=== PATIENT | female | born 1990 | race Caucasian/White ===

== ENCOUNTER 2019-03-24 07:23 | Day surgery (SDC) | payer BC ==
[~2019-03-24 07:23] MED LIST: Lactated Ringers 1,000 ML IV SCH; Lidocaine 1%/Sod Bicarbonate in NS 8.4% 1 ML Syringe IDERM PRN; Sodium Chloride 0.9% 10 ML Syringe FLUSH PRN
--- NOTE | 2019-03-24 07:55 | PCM.PREANE ---
Preanesthetic Assessment - Anesthesia/Transfusion/Family Hx Anesthesia History: Prior Anesthesia Without Reaction Family History of Anesthesia Reaction: No Transfusion History: No Prior Transfusion(s) Intubation History: Unknown - Review of Systems General: No Symptoms Pulmonary: No Symptoms Cardiovascular: No Symptoms Gastrointestinal: No Symptoms Neurological: No Symptoms Other: Reports: None - Physical Assessment NPO Status Date: 03/23/19 NPO Status Time: 09:30 Blood Pressure: 118/80 Height: 1.68 m Weight: 88.451 kg Mental Status: Alert & Oriented x3 Airway Class: Mallampati = 1 Dentition: Reports: Normal Dentition Thyro-Mental Finger Breadths: 3 Mouth Opening Finger Breadths: 3 ROM/Head Extension: Full Lungs: Clear to Auscultation, Normal Respiratory Effort Cardiovascular: Regular Rate, Regular Rhythm, No Murmurs - Lab Values: Laboratory Last Values WBC 8.33 K/mm3 (3.98-10.04) 03/21/19 16:15 RBC 4.82 M/mm3 (3.98-5.22) 03/21/19 16:15 Hgb 13.8 gm/L (11.2-15.7) 03/21/19 16:15 Hct 42.2 % (34.1-44.9) 03/21/19 16:15 MCV 87.6 fl (79.4-94.8) 03/21/19 16:15 MCH 28.6 pg (25.6-32.2) 03/21/19 16:15 MCHC 32.7 g/dl (32.2-35.5) 03/21/19 16:15 RDW Std Deviation 42.7 fL (36.4-46.3) 03/21/19 16:15 Plt Count 300 K/mm3 (182-369) 03/21/19 16:15 MPV 10.3 fl (9.4-12.3) 03/21/19 16:15 Neut % (Auto) 60.3 % (34.0-71.1) 03/21/19 16:15 Lymph % (Auto) 31.8 % (19.3-51.7) 03/21/19 16:15 [place] % (Auto) 6.2 % (4.7-12.5) 03/21/19 16:15 Eos % (Auto) 1.2 (0.7-5.8) 03/21/19 16:15 Baso % (Auto) 0.4 % (0.1-1.2) 03/21/19 16:15 Neut # (Auto) 5.02 K/mm3 (1.56-6.13) 03/21/19 16:15 Lymph # (Auto) 2.65 K/mm3 (1.18-3.74) 03/21/19 16:15 [place] # (Auto) 0.52 K/mm3 (0.24-0.36) H 03/21/19 16:15 Eos # (Auto) 0.10 K/mm3 (0.04-0.36) 03/21/19 16:15 Baso # (Auto) 0.03 K/mm3 (0.01-0.08) 03/21/19 16:15 Urine HCG, Qual Negative (NEGATIVE) 03/24/19 07:31 - Allergies Allergies/Adverse Reactions: Allergies Allergy/AdvReac Type Severity Reaction Status Date / Time No Known Allergies Allergy Verified 03/23/19 13:45 - Acknowledgements Anesthesia Type Planned: MAC Pt an Appropriate Candidate for the Planned Anesthesia: Yes Alternatives and Risks of Anesthesia Discussed w Pt/Guardian: Yes Pt/Guardian Understands and Agrees with Anesthesia Plan: Yes PreAnesthesia Questionnaire HEENT History: Reports: Impaired Vision, Other (See Below) Other HEENT History: WEARS GLASSES Cardiovascular History: Reports: None Respiratory History: Reports: None Gastrointestinal History: Reports: None Genitourinary History: Reports: Other (See Below) Other Genitourinary History: 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 Neurological History: Reports: None Psychiatric History: Reports: None Endocrine/Metabolic History: Reports: None Hematologic History: Reports: None Immunologic History: Reports: None Oncologic (Cancer) History: Reports: None Dermatologic History: Reports: None - Past Surgical History Head Surgeries/Procedures: Reports: None HEENT Surgical History: Reports: Oral Surgery Cardiovascular Surgical History: Reports: None Respiratory Surgical History: Reports: None GI Surgical History: Reports: Appendectomy Female Surgical History: Reports: LEEP Endocrine Surgical History: Reports: None Neurological Surgical History: Reports: Other (See Below) Other Neurological Surgeries/Procedures: BACK SURGERY Musculoskeletal Surgical History: Reports: Arthroscopic Knee Oncologic Surgical History: Reports: None Dermatological Surgical History: Reports: None - SUBSTANCE USE Smoking Status *Q: Never Smoker Recreational Drug Use History: No - HOME MEDS Home Medications: Home Meds . [No Known Home Meds] 03/23/19 [History] - CURRENT (IN HOUSE) MEDS Current Meds: Current Medications Lactated Ringer's (Ringers, Lactated) 1,000 mls @ 125 mls/hr IV ASDIRECTED CELY PRN Reason: Pain Stop: 03/24/19 23:00 Lidocaine/Sodium Bicarbonate (Buffered Lidocaine 1% In Ns 8.4%) 0.25 ml IDERM ONETIME PRN PRN Reason: Prior to IV Start Stop: 03/24/19 18:00 Sodium Chloride (Saline Flush) 10 ml FLUSH ASDIRECTED PRN PRN Reason: Keep Vein Open Stop: 03/24/19 18:00
[2019-03-24] MEDS ORDERED: Ondansetron 4 MG/2 ML SDV ONE (08:04)
[2019-03-24] MEDS ORDERED: Propofol 200 MG/20 ML SDV ONE (08:04)
[2019-03-24] MEDS ORDERED: fentaNYL 250 MCG/5 ML SDV ONE (08:05)
[2019-03-24] MEDS ORDERED: Midazolam 1 MG/ML 2 ML SDV ONE (08:05)
[2019-03-24] MEDS ORDERED: Lidocaine 1% 4 ML ONE (08:05)
[2019-03-24] MEDS ORDERED: Ibuprofen 600 MG Tab PO PRN (09:18)
--- NOTE | 2019-03-24 09:23 | PCM.OPNOTE ---
- General Post-Op/Procedure Note Date of Surgery/Procedure: 03/24/19 Operative Procedure(s): removal of IUD under anesthesia. Findings: Mirena IUD noted to be in utero. The IUD strings extending approximately 1-1/2 cm beyond the external os of the cervix. Pre Op Diagnosis: Mirena IUD in utero with intolerance of procedure in clinic to remove IUD. Post-Op Diagnosis: Same Anesthesia Technique: Moderate Sedation Primary Surgeon: James Lopez Anesthesia Provider: Iban Carrillo Track Fitter: Otis Stuart Pathology: Mirena IUD was placed in a biohazard bag to be shown to the patient. It was not sent to pathology for evaluation. Output, Urine Amount: 0 EBL in mLs: 0 Complications: None Condition: Good Free Text/Narrative:: surgery duration: One minutes Procedure: Patient was taken surgery given sedation per anesthesia. Placed in a dorsal lithotomy position. A medium Graves bivalve speculum was placed. the strings twice a day were visualized. They're grasped with ring forceps and removed. Patient tolerated procedure well. No Pap patient was returned to supine position and discharge from the operating room in good condition.
== END 2019-03-24 09:50 | disposition home or self-care (01) ==
LOC: JD.SDS 07:23
PROVIDERS: ATTEND Obstetrics & Gynecology
DX: Z30.432 Encounter for removal of intrauterine contraceptive device (principal)
CPT/HCPCS: 36415; 58301; 81025; 85025; J2001; J2250; J2405; J2704; J3010; J7120; 00940

== ENCOUNTER 2020-02-06 09:41 | Inpatient (IN) | payer BC ==
[~2020-02-06 09:41] MED LIST changes: +Bupivacaine 0.25% 10 ML SDV ONE; -Lactated Ringers 1,000 ML IV SCH; -Lidocaine 1%/Sod Bicarbonate in NS 8.4% 1 ML Syringe IDERM PRN; -Sodium Chloride 0.9% 10 ML Syringe FLUSH PRN
[2020-02-06] MEDS ORDERED: Nalbuphine 10 MG/ML Syringe IVPUSH PRN (10:07)
[2020-02-06] MEDS ORDERED: Ondansetron 4 MG/2 ML SDV IVPUSH PRN (10:07)
[2020-02-06] MEDS ORDERED: Sodium Chloride 0.9% 10 ML Syringe FLUSH PRN (10:07)
[2020-02-06] MEDS ORDERED: Oxytocin/Lactated Ringers 10 UNIT/1,000 ML BAG IV SCH ×2 (10:15)
--- NOTE | 2020-02-06 10:34 | PCM.LDHP ---
L&D History of Present Illness - General Date of Service: 02/06/20 Admit Problem/Dx: Patient Status Order with Admit Dx/Problem 02/06/20 09:53 Patient Status [ADT] Routine 02/06/20 10:10 Patient Status [ADT] Routine Admission Diagnosis/Problem Admission Diagnosis/Problem 02/06/20 10:25 Merry is a 29-year-old 1 para 0 white female presently at 37 and 57 weeks gestational age with an GONZALO of 02/22/2020 admitted for spontaneous rupture membranes with resultant clear amniotic fluid and early labor. Source of Information: Patient History Limitations: Reports: No Limitations - History of Present Illness Introduction:: Merry is a 29-year-old 1 para 0 white female presently at 37 and 57 weeks gestational age with an GONZALO of 02/22/2020 admitted for spontaneous rupture membranes with resultant clear amniotic fluid and early labor.She reports that approximately 0500 hrs. today she had a gush of fluid and has had continuous clear fluid leakage since that time. She is not having any significant contractions. She reports good activity. Evaluation in labor and delivery shows what appears to be gross rupture of membranes. The heart tones are reassuring. TRAINING SPECIALIST history: Merry is a 1 para 0. She had normal menarche at age 9 with cycles every month and duration of cycles 3-4 days. She is not using any control time of conception. Her certain last menstrual period started on . She had 2 ultrasounds during the course the which supported her GONZALO on 08/10/2019 at 12 weeks and 4 days and the second one on 10/13/2019 at 22-0/7 weeks gestational age. She denies any abnormal Pap smears or STDs. course. First visit was on 10/11/2018 at 12 weeks gestational age. Merry was seen on a regular basis during the course of her . Weight gain was from 180.8 pounds to 204.6 pounds for an 24 pound increase. Her vital signs remained stable throughout her course. Growth was appropriate. Patient desires an epidural in labor and delivery. She is group B strep negative. She had a history of cervical dysplasia and had a LEEP done on 12/13/2019. She declined genetic testing during the course was. She plans to breast-feed. Patient is rubella immune. Laboratory testing and shows blood to be O+ with a negative antibody screen. Hemoglobin is 13.0 g/dL platelets are 289,000. She is rubella immune. RPR is nonreactive. Urine culture is first visit was negative. Hep B surface antigen and HIV assays were both negative. Chlamydia and gonorrhea testing were both negative. Second trimester testing showed hemoglobin 12.0 g/ dL. Her 1 hour GTT was 130 mg/dL. Platelets were 303,000. RPR done on 11/21/2019 was nonreactive. Group B strep screen was negative. Allergies: None Medications: vitamins 1 daily Past medical history: 1. Cervical dysplasia treated with LEEP 2008. Past surgical history: 1. LEEP 2009 for cervical dysplasia 2. ACL repair 2002 3. Appendectomy 2004 4. Herniated spinal disc with repair 2014 5. [place] teeth extraction 2017. Family history: Mother is alive and well as is her father. She has 2 brothers and 3 sisters who are alive and well. Maternal grandmother is secondary to kidney cancer at age 52. Maternal grandfather is alive but with a history of stroke and coma. He was a smoker. Paternal grandmother is alive and well. Paternal grandfather medical history is unknown. No history of cancer, bleeding or blood clotting disorders, anesthesia-related problems or - related issues in the family. Social history: Patient is single. She lives in [place], [place]. Her significant other is Deyvi Taylor. She has a college graduate. 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 She does not use any significant amounts of alcohol, drugs or tobacco. Review of systems: In general patient has no complaints. She reports spontaneous rupture membranes with clear fluid. Baby has been active. No other concerns. Skin: Negative Lungs: No infectious symptoms or shortness of breath Cardiovascular: No chest pain or exercise intolerance Breasts: No lumps, changes in size, pain, dimpling, discharge or axillary or supraclavicular concerns. End is associated with noted. GI: Negative : Body habitus changes associated with . Musculoskeletal: Negative Neurological: Negative In general the patient is well-developed, well-nourished, pleasant female of stated age in no acute distress. On last evaluation clinic on 01/30/2020 patient blood pressure is 114/64. Weight was 210.8 pounds with weight at her first visit being 180.8 pounds. Height is 5 feet 6 inches. Prepregnancy body mass index is 32. heart rate was 127 BPM. Skin is warm dry without lesions. HEENT, neck and back within normal limits. Lungs are clear with good breath sounds in all lung oconnell. Cardiovascular exam shows regular and rhythm without murmurs. Breast exam is deferred having been done at first visit found to be normal and is not repeated at this time. Abdomen is gravid with last fundal height clinic on 01/30/2020 at 38.5 cm. Genital per digital exam on last evaluation clinic: 2 cm, 70% effaced, soft, posterior, -3 station. Cephalic presentation was confirmed at that time. Extremities and neurological exam are grossly within normal limits. 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 Neurological History: Reports: None Psychiatric History: Reports: None Endocrine/Metabolic History: Reports: None Hematologic History: Reports: None Immunologic History: Reports: None Oncologic (Cancer) History: Reports: None Dermatologic History: Reports: None - Past Surgical History Head Surgeries/Procedures: Reports: None HEENT Surgical History: Reports: Oral Surgery Cardiovascular Surgical History: Reports: None Respiratory Surgical History: Reports: None GI Surgical History: Reports: Appendectomy Female Surgical History: Reports: LEEP Endocrine Surgical History: Reports: None Neurological Surgical History: Reports: Other (See Below) Other Neurological Surgeries/Procedures: BACK SURGERY Musculoskeletal Surgical History: Reports: Arthroscopic Knee Oncologic Surgical History: Reports: None Dermatological Surgical History: Reports: None Social & Family History - Caffeine Use Caffeine Use: Reports: Tea H&P Review of Systems - Review of Systems: Review Of Systems: See Below L&D Exam - Exam Exam: See Below - Vital Signs Vital Signs: Last Vital Signs Temp 36.7 C 02/06/20 09:59 Pulse 79 02/06/20 09:59 Resp 14 02/06/20 09:59 BP 108/74 02/06/20 09:59 Pulse Ox 93 L 02/06/20 09:59 Weight: 95.799 kg Problem List Initiated/Reviewed/Updated: Yes Orders Last 24hrs: Active Orders 24 hr Category Date Time Status Patient Status [ADT] Routine ADT 02/06/20 09:53 Active Patient Status [ADT] Routine ADT 02/06/20 10:10 Active Activity as Tolerated [RC] PFP Care 02/06/20 10:10 Active Communication Order [RC] ASDIRECTED Care 02/06/20 10:10 Active Heart Tones [RC] ASDIRECTED Care 02/06/20 10:10 Active Non Stress Test [RC] PER UNIT ROUTINE Care 02/06/20 09:53 Active Non Stress Test [RC] PER UNIT ROUTINE Care 02/06/20 10:10 Active Notify Provider [RC] PFP Care 02/06/20 10:10 Active Notify Provider [RC] PRN Care 02/06/20 10:10 Active Peripheral IV Care [RC] . DIRECTED Care 02/06/20 10:10 Active Vaginal Exam [RC] PRN Care 02/06/20 09:54 Active Vital Signs [RC] PER UNIT ROUTINE Care 02/06/20 09:53 Active Vital Signs [RC] PER UNIT ROUTINE Care 02/06/20 10:10 Active Regular Diet [DIET] Diet 02/06/20 Lunch Active Regular Diet [DIET] Diet 02/06/20 Lunch Active BLOOD BANK HOLD SPECIMEN [BBK] Stat Lab 02/06/20 10:07 Ordered CBC WITH AUTO DIFF [HEME] Stat Lab 02/06/20 10:07 Ordered RAPID PLASMA REAGIN,RPR [CHEM] Routine Lab 02/06/20 10:10 Ordered Lactated Ringers [Ringers, Lactated] 1,000 ml Med 02/06/20 10:15 Active IV ASDIRECTED Nalbuphine [Nubain] Med 02/06/20 10:07 Active 10 mg IVPUSH Q2H PRN Ondansetron [Zofran] Med 02/06/20 10:07 Active 4 mg IVPUSH Q4H PRN Oxytocin/Lactated Ringers [Pitocin in LR 10 Units/1,000 Med 02/06/20 10:15 Active ML] 10 unit in 1,000 ml IV .CONTINUOUS Oxytocin/Lactated Ringers [Pitocin in LR 10 Units/1,000 Med 02/06/20 10:15 Active ML] 10 unit in 1,000 ml IV TITRATE Sodium Chloride 0.9% [Saline Flush] Med 02/06/20 10:07 Active 10 ml FLUSH ASDIRECTED PRN Electronic Heart Tones Ext w TOCO [WOMSER] Oth 02/06/20 10:10 Ordered Routine Electronic Heart Tones Internal [WOMSER] Per Unit Ot 02/06/20 10:10 Ordered Routine Peripheral IV Insertion Adult [OM.PC] Routine Ot 02/06/20 10:10 Ordered Resuscitation Status Routine Resus Stat 02/06/20 09:53 Ordered Medication Orders Lactated Ringer's (Ringers, Lactated) 1,000 mls @ 100 mls/hr IV ASDIRECTED CELY Oxytocin/Lactated Ringer's (Pitocin In Lr 10 Units/1,000 Ml) 10 unit in 1,000 mls @ 12 mls/hr IV TITRATE CELY; Protocol Oxytocin/Lactated Ringer's (Pitocin In Lr 10 Units/1,000 Ml) 10 unit in 1,000 mls @ 500 mls/hr IV .CONTINUOUS CELY Nalbuphine HCl (Nubain) 10 mg IVPUSH Q2H PRN PRN Reason: Pain Ondansetron HCl (Zofran) 4 mg IVPUSH Q4H PRN PRN Reason: Nausea/Vomiting Sodium Chloride (Saline Flush) 10 ml FLUSH ASDIRECTED PRN PRN Reason: Keep Vein Open Assessment/Plan Comment:: 1. 37-5/7 week intrauterine with spontaneous rupture membranes with resultant clear amniotic fluid now in early labor. 2. Group B strep screen negative. 3. Patient plans to breast-feed 4. Patient desiring epidural in labor 5. Patient is rubella immune. 6. Patient declined genetic testing in . 7. History of LEEP 2008 for cervical dysplasia Plan: 1. Admit for labor, anticipate . Routine labor care. 2. Epidural per patient desire 3. RPR and CBC upon admission 4. Support patient's breast-feeding plan
[2020-02-06] MEDS ORDERED: diphenhydrAMINE 50 MG/ML SDV IVPUSH PRN (11:20)
[2020-02-06] MEDS ORDERED: fentaNYL 100 MCG/2 ML SDV EPIDUR PRN (11:20)
[2020-02-06] MEDS ORDERED: ePHEDrine 50 MG/ML SDV IVPUSH PRN (11:20)
--- NOTE | 2020-02-06 11:25 | PCM.PREANE ---
Preanesthetic Assessment - Procedure Proposed Procedure: ezio - Anesthesia/Transfusion/Family Hx Anesthesia History: Prior Anesthesia Without Reaction Family History of Anesthesia Reaction: No Transfusion History: No Prior Transfusion(s) Intubation History: Unknown - Review of Systems General: No Symptoms Pulmonary: No Symptoms Cardiovascular: No Symptoms Gastrointestinal: No Symptoms Neurological: No Symptoms Other: Reports: None - Physical Assessment Vital Signs: Last Vital Signs Temp 98.1 F 02/06/20 09:59 Pulse 79 02/06/20 09:59 Resp 14 02/06/20 09:59 BP 108/74 02/06/20 09:59 Pulse Ox 93 L 02/06/20 09:59 Height: 5 ft 6 in Weight: 95.799 kg ASA Class: 2 Mental Status: Alert & Oriented x3 Airway Class: Mallampati = 1 Dentition: Reports: Normal Dentition Thyro-Mental Finger Breadths: 3 Mouth Opening Finger Breadths: 3 ROM/Head Extension: Full Lungs: Clear to Auscultation, Normal Respiratory Effort Cardiovascular: Regular Rate, Regular Rhythm - Lab Values: Laboratory Last Values WBC 10.83 K/mm3 (3.98-10.04) H 02/06/20 10:30 RBC 4.39 M/mm3 (3.98-5.22) 02/06/20 10:30 Hgb 12.2 gm/dl (11.2-15.7) 02/06/20 10:30 Hct 37.9 % (34.1-44.9) 02/06/20 10:30 MCV 86.3 fl (79.4-94.8) 02/06/20 10:30 MCH 27.8 pg (25.6-32.2) 02/06/20 10:30 MCHC 32.2 g/dl (32.2-35.5) 02/06/20 10:30 RDW Std Deviation 42.8 fL (36.4-46.3) 02/06/20 10:30 Plt Count 267 K/mm3 (182-369) 02/06/20 10:30 MPV 10.7 fl (9.4-12.3) 02/06/20 10:30 Neut % (Auto) 71.7 % (34.0-71.1) H 02/06/20 10:30 Lymph % (Auto) 20.9 % (19.3-51.7) 02/06/20 10:30 [place] % (Auto) 6.2 % (4.7-12.5) 02/06/20 10:30 Eos % (Auto) 0.6 (0.7-5.8) L 02/06/20 10:30 Baso % (Auto) 0.2 % (0.1-1.2) 02/06/20 10:30 Neut # (Auto) 7.77 K/mm3 (1.56-6.13) H 02/06/20 10:30 Lymph # (Auto) 2.26 K/mm3 (1.18-3.74) 02/06/20 10:30 [place] # (Auto) 0.67 K/mm3 (0.24-0.36) H 02/06/20 10:30 Eos # (Auto) 0.07 K/mm3 (0.04-0.36) 02/06/20 10:30 Baso # (Auto) 0.02 K/mm3 (0.01-0.08) 02/06/20 10:30 Manual Slide Review Normal smear 02/06/20 10:30 - Allergies Allergies/Adverse Reactions: Allergies Allergy/AdvReac Type Severity Reaction Status Date / Time No Known Allergies Allergy Verified 02/06/20 09:52 - Blood Blood Available: No - Acknowledgements Anesthesia Type Planned: Epidural Pt an Appropriate Candidate for the Planned Anesthesia: Yes Alternatives and Risks of Anesthesia Discussed w Pt/Guardian: Yes Pt/Guardian Understands and Agrees with Anesthesia Plan: Yes PreAnesthesia Questionnaire HEENT History: Reports: Impaired Vision, Other (See Below) Other HEENT History: WEARS GLASSES Cardiovascular History: Reports: None Respiratory History: Reports: None Gastrointestinal History: Reports: None, GERD (with preg) Genitourinary History: Reports: Other (See Below) Other 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 Neurological History: Reports: None Psychiatric History: Reports: None Endocrine/Metabolic History: Reports: None Hematologic History: Reports: None Immunologic History: Reports: None Oncologic (Cancer) History: Reports: None Dermatologic History: Reports: None - Past Surgical History Head Surgeries/Procedures: Reports: None HEENT Surgical History: Reports: Oral Surgery Cardiovascular Surgical History: Reports: None Respiratory Surgical History: Reports: None GI Surgical History: Reports: Appendectomy Female Surgical History: Reports: LEEP Endocrine Surgical History: Reports: None Neurological Surgical History: Reports: Other (See Below) Other Neurological Surgeries/Procedures: BACK SURGERY Musculoskeletal Surgical History: Reports: Arthroscopic Knee Oncologic Surgical History: Reports: None Dermatological Surgical History: Reports: None - SUBSTANCE USE Smoking Status *Q: Never Smoker Tobacco Use Within Last Twelve Months: No Second Hand Smoke Exposure: No Days Per Week of Alcohol Use: 0 Recreational Drug Use History: No Recreational Drug Type: Reports: Marijuana/Hashish (prior to ) - HOME MEDS Home Medications: Home Meds Prenat 115/Iron Fum/Folic/Dss [ 19 Tablet] 1 each PO DAILY 02/06/20 [ History] - CURRENT (IN HOUSE) MEDS Current Meds: Current Medications Lactated Ringer's (Ringers, Lactated) 1,000 mls @ 100 mls/hr IV ASDIRECTED CELY Oxytocin/Lactated Ringer's (Pitocin In Lr 10 Units/1,000 Ml) 10 unit in 1,000 mls @ 12 mls/hr IV TITRATE CELY; Protocol Oxytocin/Lactated Ringer's (Pitocin In Lr 10 Units/1,000 Ml) 10 unit in 1,000 mls @ 500 mls/hr IV .CONTINUOUS CELY Nalbuphine HCl (Nubain) 10 mg IVPUSH Q2H PRN PRN Reason: Pain Ondansetron HCl (Zofran) 4 mg IVPUSH Q4H PRN PRN Reason: Nausea/Vomiting Sodium Chloride (Saline Flush) 10 ml FLUSH ASDIRECTED PRN PRN Reason: Keep Vein Open
[2020-02-06] MEDS: Lactated Ringers 1,000 ML IV SCH ×5 (12:01→21:00)
[2020-02-06] MEDS: Bupivacaine/fentaNYL/NS 100 ML Bag EPIDUR PRN ×2 (15:16→19:55)
--- NOTE | 2020-02-06 22:17 | PCM.SN.2 ---
- Free Text/Narrative Note: note: Merry is a 29-year-old 1 para 0 white female presently at 37 and 57 weeks gestational age with an GONZALO of 02/22/2020 admitted for spontaneous rupture membranes with resultant clear amniotic fluid and early labor. After approximately 2-3 hours patient was started on Pitocin augmentation. With Pitocin augmentation she progressed regularly and steadily to complete cervical dilation by approximately 2030 hrs. on 02/06/2020. She had an epidural placed for labor analgesia. At 2148 hrs. on 02/06/2020 patient delivered a viable, oswald, male infant in a left occiput anterior position. The baby had Apgars of 8 and 9, a weight of 2, 840 grams, (6 pounds, 4 ounces), and a length of 20.0 inches. The baby was placed on mom's abdomen and nose and mouth were bulb suctioned. Baby was dried with warm blanket. Cord was allowed to pulsate for 2-3 minutes then was clamped �2 and cut by the baby's father Deyvi Taylor. Pitocin was increased 500 mL/h to facilitate increase in uterine tone and decrease likelihood of bleeding. Babies name is River. Umbilical cord blood obtained. The umbilical cord had 3 vessels. The placenta delivered in a Corley presentation, appeared intact and complete and appeared to have 2 lobes connected by membranous blood vessels. It appeared intact and complete and was discarded per patient desire. Perineum was found to have a small superficial laceration at 6 o'clock position this was closed with a single [id number] suture of 3-0 Vicryl. Labor epidural analgesia was used for perineal repair anesthesia. Patient tolerated this well. Patient plans to breast-feed. Condition: Good. Estimated blood loss was approximately 100 mL.
[2020-02-06] MEDS ORDERED: Acetaminophen 325 MG Tab PO PRN (22:49)
[2020-02-06] MEDS ORDERED: Witch Hazel Medicated Pads 40/Jar TOP PRN (22:49)
[2020-02-06] MEDS ORDERED: Benzocaine/Menthol 20%-0.5% Spray 56 GM Canister TOP PRN (22:49)
[2020-02-06] MEDS ORDERED: Docusate Sodium 100 MG Cap PO PRN (22:49)
--- NOTE | 2020-02-07 06:35 | PCM.SN.2 ---
- Free Text/Narrative Note: note: Patient is doing well in the period. Minimal lochia, voiding well, ambulated without problems. Nursing without concerns. She did have a an episode of her right leg giving out when started at bedside. She however was helped back into bed by the nurse and her and she suffered no injuries. She is feeling better now. Patient is afebrile, vital signs are stable Abdomen is flat, soft, uterus is below the umbilicus and is firm and nontender. Legs are nontender. Assessment: recovery going well. Plan: Routine care. Patient be discharged home within the next 24-48 hours.
--- NOTE | 2020-02-07 08:32 | PCM48HPAN ---
Post Anesthesia Note - EVALUATION WITHIN 48HRS OF ANESTHETIC Vital Signs in Normal Range: Yes Patient Participated in Evaluation: Yes Respiratory Function Stable: Yes Airway Patent: Yes Cardiovascular Function Stable: Yes Hydration Status Stable: Yes Pain Control Satisfactory: Yes Nausea and Vomiting Control Satisfactory: Yes Mental Status Recovered: Yes Vital Signs: Last Vital Signs Temp 36.8 C 02/07/20 03:25 Pulse 82 02/07/20 03:25 Resp 16 02/07/20 03:25 BP 101/64 02/07/20 03:25 Pulse Ox 98 02/07/20 03:25
[2020-02-07] MEDS: Prenatal Multivitamin with Calcium/Folic Acid/Iron Tab PO SCH (16:24)
[2020-02-07] MEDS: Ibuprofen 600 MG Tab PO PRN (16:24)
[2020-02-08] MEDS: Ibuprofen 600 MG Tab PO PRN (00:13)
--- NOTE | 2020-02-08 06:30 | PCM.DCSUM1 ---
Discharge Summary - Hospital Course Free Text/Narrative:: Merry is a 29-year-old 1 para 0 white female presently at 37 and 57 weeks gestational age with an GONZALO of 02/22/2020 admitted for spontaneous rupture membranes with resultant clear amniotic fluid and early labor. After approximately 2-3 hours patient was started on Pitocin augmentation. With Pitocin augmentation she progressed regularly and steadily to complete cervical dilation by approximately 2030 hrs. on 02/06/2020. She had an epidural placed for labor analgesia. At 2148 hrs. on 02/06/2020 patient delivered a viable, oswald, male in a left occiput anterior position. The baby had Apgars of 8 and 9, a weight of 2, 840 grams, (6 pounds, 4 ounces), and a length of 20.0 inches. The baby was placed on mom's abdomen and nose and mouth were bulb suctioned. Baby was dried with warm blanket. Cord was allowed to pulsate for 2-3 minutes then was clamped �2 and cut by the baby's father Deyvi Taylor. Pitocin was increased 500 mL/h to facilitate increase in uterine tone and decrease likelihood of bleeding. Babies name is River. Umbilical cord blood obtained. The umbilical cord had 3 vessels. The placenta delivered in a Corley presentation, appeared intact and complete and appeared to have 2 lobes connected by membranous blood vessels. It appeared intact and complete and was discarded per patient desire. Perineum was found to have a small superficial laceration at 6 o'clock position this was closed with a single [id number] suture of 3-0 Vicryl. Labor epidural analgesia was used for perineal repair anesthesia. Patient tolerated this well. Patient plans to breast-feed. Estimated blood loss was approximately 100 mL. patient is done very well. She is nursing without problems. She has minimal lochia, is voiding well. On the morning of the first day she did have some leg weakness which she related to her epidural. This has resolved. She is desiring discharge home. Diagnosis: Stroke: No - Discharge Data Discharge Date: 02/08/20 Discharge Disposition: Home, Self-Care 01 Condition: Good - Referral to Home Health Primary Care Physician: MATTHEW Duncan - Patient Instructions Diet: Regular Diet as Tolerated (Nursing diet with increased calcium and calories as recommended) Activity: As Tolerated (No intercourse or tampons until bleeding results.) Driving: May Drive Today, Do Not Drive Showering/Bathing: May Shower (May take a bath) Notify Provider of: Fever, Increased Pain, Swelling and Redness, Nausea and/or Vomiting - Discharge Plan Home Medications: Home Meds Prenat 115/Iron Fum/Folic/Dss [ 19 Tablet] 1 each PO DAILY 02/06/20 [ History] Acetaminophen [Tylenol] 650 mg PO Q4H PRN tablet 02/08/20 [Rx] Ibuprofen [Motrin] 600 mg PO Q4H PRN tablet 02/08/20 [Rx] Referrals: James Lopez MD [Physician] - (Please have the patient call clinic to make a telehealth appointment for 2 weeks .) - Discharge Summary/Plan Comment DC Time >30 min.: No Discharge Summary/Plan Comment: Discharge instructions: 1. Discharge home 2. Diet, activity and follow-up discussed with patient. Recommend nursing diet with increased calories and calcium. 3. Precautions given concern increased pain, bleeding, temperature, signs/ symptoms of DVT/PE. 4. Medications per home medication was printed, discussed with and given to the patient. 5. Please have patient call the clinic to make a telehealth appointment for 2 weeks . Diagnosis: Term -delivered Condition: Good - Patient Data Vitals - Most Recent: Last Vital Signs Temp 36.6 C 02/08/20 03:49 Pulse 69 02/08/20 03:51 Resp 16 02/08/20 03:49 BP 106/65 02/08/20 03:51 Pulse Ox 96 02/08/20 03:51 Weight - Most Recent: 95.799 kg Med Orders - Current: Current Medications Acetaminophen (Tylenol) 650 mg PO Q4H PRN PRN Reason: mild pain or fever Benzocaine/Menthol (Dermoplast Pain Relief Loman) 0 gm TOP ASDIRECTED PRN PRN Reason: Perineal Comfort Measure Docusate Sodium (Colace) 100 mg PO BID PRN PRN Reason: Constipation Last Admin: 02/08/20 00:13 Dose: 100 mg Ibuprofen (Motrin) 600 mg PO Q4H PRN PRN Reason: Mild pain or fever Last Admin: 02/08/20 00:13 Dose: 600 mg Prenat Multivit/[place]/Iron/Folic Ac ( Plus Iron) 1 each PO DAILY CELY Last Admin: 02/07/20 16:24 Dose: Not Given Basil Caballero (Tucks) 1 pad TOP ASDIRECTED PRN PRN Reason: Perineal Comfort Measure Discontinued Medications Bupivacaine HCl (Sensorcaine-Mpf 0.25%) 10 ml .ROUTE .STK-MED ONE Stop: 02/06/20 00:01 Diphenhydramine HCl (Benadryl) 25 mg IVPUSH Q6H PRN PRN Reason: pruritis Ephedrine Sulfate (Ephedrine Sulfate) 5 mg IVPUSH ASDIRECTED PRN PRN Reason: Hypotension Fentanyl (Sublimaze) 100 mcg EPIDUR Q3H PRN PRN Reason: Pain Last Admin: 02/06/20 15:16 Dose: 100 mcg Fentanyl/Bupivacaine HCl (Fentanyl/Bupivacaine/Ns 2 Mcg-0.125% 100 Ml) 100 ml EPIDUR ASDIRECTED PRN PRN Reason: Pain Last Admin: 02/06/20 19:55 Dose: 100 ml Lactated Ringer's (Ringers, Lactated) 1,000 mls @ 100 mls/hr IV ASDIRECTED CELY Last Admin: 02/06/20 21:00 Dose: 200 mls/hr Oxytocin/Lactated Ringer's (Pitocin In Lr 10 Units/1,000 Ml) 10 unit in 1,000 mls @ 12 mls/hr IV TITRATE CELY; Protocol Last Titration: 02/06/20 14:15 Dose: 10 munits/min, 60 mls/hr Oxytocin/Lactated Ringer's (Pitocin In Lr 10 Units/1,000 Ml) 10 unit in 1,000 mls @ 500 mls/hr IV .CONTINUOUS CELY Nalbuphine HCl (Nubain) 10 mg IVPUSH Q2H PRN PRN Reason: Pain Ondansetron HCl (Zofran) 4 mg IVPUSH Q4H PRN PRN Reason: Nausea/Vomiting Sodium Chloride (Saline Flush) 10 ml FLUSH ASDIRECTED PRN PRN Reason: Keep Vein Open
[2020-02-08] MEDS: Prenatal Multivitamin with Calcium/Folic Acid/Iron Tab PO SCH (12:31)
== END 2020-02-08 11:38 | disposition home or self-care (01) | DRG 560 ==
LOC: JD.OBCHECK 09:41 → JD.OB 09:42 → JD.OBCHECK 10:10 → JD.OB 10:10 → OBSVTOIN 21:48
PROVIDERS: ADMIT Obstetrics & Gynecology; ATTEND Obstetrics & Gynecology
PROC: 10E0XZZ Delivery of Products of Conception, External Approach (ICD-10-PCS; principal; 2020-02-06)
PROC: 0HQ9XZZ Repair Perineum Skin, External Approach (ICD-10-PCS; 2020-02-06)
PROC: 3E0R3BZ Introduction of Anesthetic Agent into Spinal Canal, Percutaneous Approach (ICD-10-PCS; 2020-02-06)
PROC: 00HU33Z Insertion of Infusion Device into Spinal Canal, Percutaneous Approach (ICD-10-PCS; 2020-02-06)
DX: O70.0 First degree perineal laceration during delivery (principal); Z37.0 Single live birth; Z3A.37 37 weeks gestation of pregnancy
CPT/HCPCS: 01967; 36415; 51702; 59025; 59409; 85025; 86592; A9270-GY; J2590; J3010; J3490; J7120